=== PATIENT | male | born 1940 | race Caucasian/White ===

== ENCOUNTER 2020-07-11 18:08 | Emergency (ER) | payer MEDICARE, OTHER ==
--- NOTE | 2020-07-11 20:53 | EDM.PDOC ---
ED HPI GENERAL MEDICAL PROBLEM - General Chief Complaint: Respiratory Problem Stated Complaint: SENT BY ANT/COVID + Time Seen by Provider: 07/11/20 18:38 Source of Information: Reports: Patient, RN Notes Reviewed History Limitations: Reports: No Limitations - History of Present Illness INITIAL COMMENTS - FREE TEXT/NARRATIVE: Patient is an 80-year-old male presenting to the emergency department for evaluation after being diagnosed with COVID-19. He began having some mild symptoms late last week. States on he had a little bit of chills. He has had a mild cough which he describes as slightly productive. He has had no documented fevers. Denies any headaches, fevers, abdominal pain, nausea, vomiting, or diarrhea. Does have a history of COPD. He states that overall he feels pretty good but a little under the weather. He was seen at the [facility] today and had a 15-minute rapid Covid test was was found to be positive. His primary care provider Janeth recommended he come to the ER in [place] for evaluation due to his history of COPD and his age. Patient did have contact with Covid positive patients. His family from the side of the [facility] had been up to visit them and stayed with them. They were later found to be Covid positive. - Related Data Allergies Allergy/AdvReac Type Severity Reaction Status Date / Time No Known Allergies Allergy Verified 07/11/20 18:31 Home Meds: Home Meds Mirtazapine [Remeron] 30 mg PO DAILY 07/11/20 [History] Montelukast [Singulair] 10 mg PO DAILY 07/11/20 [History] Tamsulosin [Flomax] 0.4 mg PO DAILY 07/11/20 [History] Tiotropium [place] [Spiriva Respimat] 2 puff INH DAILY 07/11/20 [History] levETIRAcetam [Keppra] 1,000 mg PO BID 07/11/20 [History] Past Medical History Respiratory History: Reports: Asthma Gastrointestinal History: Reports: GERD Psychiatric History: Reports: Anxiety, Depression Oncologic (Cancer) History: Reports: Other (See Below) 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 Denies: Fever HEENT: Reports: No Symptoms Respiratory: Reports: Cough. Denies: Shortness of Breath, Wheezing Cardiovascular: Reports: No Symptoms. Denies: Chest Pain, Syncope Endocrine: Reports: No Symptoms GI/Abdominal: Reports: No Symptoms : Reports: No Symptoms Musculoskeletal: Reports: No Symptoms Skin: Reports: No Symptoms Neurological: Reports: No Symptoms Psychiatric: Reports: No Symptoms Hematologic/Lymphatic: Reports: No Symptoms ED EXAM, GENERAL - Physical Exam Exam: See Below General Appearance: Alert, WD/WN, No Apparent Distress Respiratory/Chest: No Respiratory Distress, Lungs Clear, Normal Breath Sounds, No Accessory Muscle Use, Chest Non-Tender Cardiovascular: Normal Peripheral Pulses, Regular Rate, Rhythm, No Edema, No Gallop, No JVD, No Murmur, No Rub GI/Abdominal: Normal Bowel Sounds, Soft, Non-Tender, No Organomegaly, No Distention, No Abnormal Bruit, No Mass Neurological: Alert, Oriented, CN II-XII Intact, Normal Cognition, Normal Gait, Normal Reflexes, No Motor/Sensory Deficits Psychiatric: Normal Affect, Normal Mood Skin Exam: Warm, Dry, Intact, Normal Color, No Rash Course - Vital Signs Last Recorded V/S: Last Vital Signs Temp 97.6 F 07/11/20 18:28 Pulse 66 07/11/20 18:28 Resp 20 07/11/20 18:28 BP 145/94 H 07/11/20 18:28 Pulse Ox 96 07/11/20 18:28 - Orders/Labs/Meds Labs: Laboratory Tests 07/11/20 07/11/20 07/11/20 Range/Units 18:54 18:54 18:54 WBC 2.80 L (4.23-9.07) K/mm3 RBC 5.41 (4.63-6.08) M/mm3 Hgb 15.7 (13.7-17.5) gm/dl Hct 48.9 (40.1-51.0) % MCV 90.4 (79.0-92.2) fl MCH 29.0 (25.7-32.2) pg MCHC 32.1 L (32.2-35.5) g/dl RDW Std Deviation 45.7 H (35.1-43.9) fL Plt Count 109 L (163-337) K/mm3 MPV 9.8 (9.4-12.3) fl Neut % (Auto) 48.6 (34.0-67.9) % Lymph % (Auto) 41.4 (21.8-53.1) % Davison % (Auto) 8.9 (5.3-12.2) % Eos % (Auto) 0.7 L (0.8-7.0) Baso % (Auto) 0.4 (0.1-1.2) % Neut # (Auto) 1.36 L (1.78-5.38) K/mm3 Lymph # (Auto) 1.16 L (1.32-3.57) K/mm3 Davison # (Auto) 0.25 L (0.30-0.82) K/mm3 Eos # (Auto) 0.02 L (0.04-0.54) K/mm3 Baso # (Auto) 0.01 (0.01-0.08) K/mm3 Manual Slide Review Abnormal smear D-Dimer, Quantitative 0.24 (0.19-0.50) mg/L Sodium 139 (136-145) mEq/L Potassium 3.6 (3.5-5.1) mEq/L Chloride 103 (98-107) mEq/L Carbon Dioxide 26 (21-32) mEq/L Anion Gap 13.6 (5-15) BUN 10 (7-18) mg/dL Creatinine 1.3 (0.7-1.3) mg/dL Est Cr Clr Drug Dosing 52.69 mL/min Estimated GFR (MDRD) 53 (>60) mL/min BUN/Creatinine Ratio 7.7 L (14-18) Glucose 98 (83-115) mg/dL Calcium 8.3 L (8.5-10.1) mg/dL Ferritin (26-388) ng/ml Total Bilirubin 0.7 (0.2-1.0) mg/dL AST 83 H (15-37) U/L ALT 52 (16-63) U/L Alkaline Phosphatase 129 H (46-116) U/L Lactate Dehydrogenase 188 (85-227) U/L Troponin I < 0.017 (0.00-0.056) ng/mL C-Reactive Protein 1.5 H* (<1.0) mg/dL NT-Pro-B Natriuret Pep (0-450) pg/mL Total Protein 7.8 (6.4-8.2) g/dl Albumin 3.7 (3.4-5.0) g/dl Globulin 4.1 gm/dL Albumin/Globulin Ratio 0.9 L (1-2) 07/11/20 07/11/20 Range/Units 18:54 18:54 WBC (4.23-9.07) K/mm3 RBC (4.63-6.08) M/mm3 Hgb (13.7-17.5) gm/dl Hct (40.1-51.0) % MCV (79.0-92.2) fl MCH (25.7-32.2) pg MCHC (32.2-35.5) g/dl RDW Std Deviation (35.1-43.9) fL Plt Count (163-337) K/mm3 MPV (9.4-12.3) fl Neut % (Auto) (34.0-67.9) % Lymph % (Auto) (21.8-53.1) % Davison % (Auto) (5.3-12.2) % Eos % (Auto) (0.8-7.0) Baso % (Auto) (0.1-1.2) % Neut # (Auto) (1.78-5.38) K/mm3 Lymph # (Auto) (1.32-3.57) K/mm3 Davison # (Auto) (0.30-0.82) K/mm3 Eos # (Auto) (0.04-0.54) K/mm3 Baso # (Auto) (0.01-0.08) K/mm3 Manual Slide Review D-Dimer, Quantitative (0.19-0.50) mg/L Sodium (136-145) mEq/L Potassium (3.5-5.1) mEq/L Chloride (98-107) mEq/L Carbon Dioxide (21-32) mEq/L Anion Gap (5-15) BUN (7-18) mg/dL Creatinine (0.7-1.3) mg/dL Est Cr Clr Drug Dosing mL/min Estimated GFR (MDRD) (>60) mL/min BUN/Creatinine Ratio (14-18) Glucose (83-115) mg/dL Calcium (8.5-10.1) mg/dL Ferritin 294 (26-388) ng/ml Total Bilirubin (0.2-1.0) mg/dL AST (15-37) U/L ALT (16-63) U/L Alkaline Phosphatase (46-116) U/L Lactate Dehydrogenase (85-227) U/L Troponin I (0.00-0.056) ng/mL C-Reactive Protein (<1.0) mg/dL NT-Pro-B Natriuret Pep 287 (0-450) pg/mL Total Protein (6.4-8.2) g/dl Albumin (3.4-5.0) g/dl Globulin gm/dL Albumin/Globulin Ratio (1-2) - Re-Assessments/Exams Free Text/Narrative Re-Assessment/Exam: 07/11/20 20:51 Hematology was significant for WBC slightly low at 2.8, and a CRP of 1.5. Work- up was otherwise unremarkable. Ferritin and LDH are normal. Troponin was negative, D-dimer is normal. Chest x-ray showed no acute abnormalities. EKG showed no evidence of acute ischemia. Oxygen saturations have maintained in the upper 90s on room air throughout his stay in the ER. Discussed return precautions with the patient. We will discharge him home with symptomatic care. Discharge instructions as documented. Departure - Departure Time of Disposition: 20:51 Disposition: Home, Self-Care 01 Condition: Good Clinical Impression: COVID-19 - Discharge Information *PRESCRIPTION DRUG MONITORING PROGRAM REVIEWED*: No *COPY OF PRESCRIPTION DRUG MONITORING REPORT IN PATIENT KEVIN: No Instructions: COVID-19 Frequently Asked Questions, COVID-19 Referrals: PCP,Not In Area [Primary Care Provider] - Forms: ED Department Discharge Additional Instructions: You were seen in the emergency department this evening for evaluation after being diagnosed with COVID-19. Your work-up included blood work, an EKG of your heart, and chest x-ray. Your work-up was found to be overall normal. Chest x- ray was clear with no signs of pneumonia. Your lab values are overall normal. Your oxygen saturations were normal throughout your stay in the ER. I would recommend that you purchase a home pulse oximeter to monitor your oxygen sa turations at home. If you find that you are maintaining a saturation of less than 90%, you should return to the emergency department for reevaluation. If you experience any other new or worsening symptoms of concern, please do not hesitate to return for reevaluation. Sepsis Event Note (ED) - Evaluation Sepsis Screening Result: No Definite Risk
--- NOTE | 2020-07-19 12:56 | CR ---
PROCEDURE INFORMATION: Exam: XR Chest, 1 View Exam date and time: 07/11/2020 7:00 PM Age: 80 years old Clinical indication: Condition or disease; Other: Covid+ TECHNIQUE: Imaging protocol: XR of the chest Views: 1 view. COMPARISON: No relevant prior studies available. FINDINGS: Lungs: Unremarkable. No consolidation. Pleural space: Unremarkable. No pleural effusion. No pneumothorax. Heart/Mediastinum: Unremarkable. No cardiomegaly. Vasculature: Tortuous thoracic aorta. Bones/joints: Old fracture deformity mid left clavicle. IMPRESSION: No acute process Thank you for allowing us to participate in the care of your patient. Dictated and Authenticated by: Taqueria Sandoval MD 07/11/2020 9:31 PM Central Time ([place] & [place]) [facility]
== END 2020-07-11 21:05 | disposition home or self-care (01) ==
LOC: SUPCPDRO 18:08 → JD.ED 18:08
DX: U07.1 COVID-19 (principal); J45.909 Unspecified asthma, uncomplicated; F41.9 Anxiety disorder, unspecified; F32.9 Major depressive disorder, single episode, unspecified; Z79.899 Other long term (current) drug therapy; Z90.49 Acquired absence of other specified parts of digestive tract; Z87.891 Personal history of nicotine dependence
CPT/HCPCS: 36415; 71045; 71045-26; 80053; 82728; 83615; 83880; 84484; 85025; 85379; 86140; 93005; 99282; 99284-25